=== PATIENT | female | born 1980 | race Hispanic/Latino ===

== ENCOUNTER 2017-09-24 08:41 | Inpatient (IN) | payer OTHER ==
[2017-09-24] MEDS ORDERED: Betamethasone Soluspan 30 mg/5mL Inj Susp IM ONE ×3 (09:39→11:30)
[2017-09-24] MEDS ORDERED: ceFAZolin 2 GM in Sodium Chloride 0.9% 100 ML IVPB ONE (09:41)
[2017-09-24] MEDS ORDERED: Lactated Ringer's 1,000 ML IV SCH (10:00)
--- NOTE | 2017-09-24 10:07 | OBADHP ---
Datetime: 09/24/2017 10:05 Pelvic Type - PN: Adequate Extremities - PN: Normal Abdomen - PN: Normal Back - PN: Normal Breast - PN: Normal Lungs - PN: Normal Heart - PN: Normal Thyroid - PN: Normal Neurologic - PN: Normal HEENT - PN: Normal General - PN: Normal FHR - Baseline A Provider: 150 Membranes, Provider: Intact Contraction Comments Provider: [id number] IP Chief Complaint: Uterine contractions; Scheduled Section NICHD Variability Prov Fetus A: Moderate 6-25bpm NICHD Accel Fetus A IP Provider: [id number] FHR Category Provider Fetus A: Category I NICHD Decel Fetus A IP Provider: None Dilatation, Provider: 1 Effacement, Provider: 30 Station, Provider: -3 Genitourinary Exam: Normal DTRs - PN: Normal EGA AdmitDate IP: 36.4 IP Adm Impression: , intrauterine ; Active labor IP Admit Plan: Admit to unit; Initiate labor protocol; Initiate Section protocol Datetime: 09/24/2017 09:52 Admit Comment, IP Provider: PT presents today with complaints of vaginal spotting, and contractions since 7:30am. She states that she noticed urine and mucous today in the bathroom. She has a prior hx of c/s at 36 weeks and is here today to be evaluated. POBHx: 2016 section PGYNx: normal pap, denies hx of STDs PMHx: none PSHx prior c/s Social: negative x 3 Meds: none ALL; NKDA. ROS: HEENT: denies CHAPMAN, or blurry vision. Chest: denies chest pain, or irregular heartbeat. Resp: denies shortness of breath, wheezing. Abdomen: Gravid uterus. GI/: no blood noted. Ext: no edema noted. Neuro: teresa dizziness, lightheadedness or syncope: PE: as noted above. SVE: Status: category 1. A/P 36 @ 36 6/7 1) Admit L_D IVF, NPO 2) labor: betamethasone x1, not on progesterone 3) Elevated BP x 1: 154/96 -> will do pre-eclampsia labs. 4) Hx of prior c/s: pt ate at 8am. will schedule RCS at 2pm for now. will monitor pt for labor pro phuc. If she goes into active labor, she will be sectioned sooner. 5) Plan D/W: Dr. Doshi. Comments, ACOG Physical Exam: SVE: Gestation - Est Wks by US: 36 6/ Vital Signs Provider: Reviewed
[2017-09-24 10:39] LABS: BASO % 0.3 % (0.0-2.0); EOS # 0.1 K/uL (0.0-0.7); EOS % 0.5 % (0.0-4.0); HEMOGLOBIN 12.4 g/dL (11.0-16.0); LYMPH # 1.5 K/uL (1.0-4.3); LYMPH % 10.5 % (20.0-40.0); MEAN CELL VOLUME 89.2 fL (81.0-99.0); MEAN CORPUSCULAR HEMOGLOBIN 30.6 pg (27.0-31.0); MEAN CORPUSCULAR HGB CONC 34.3 g/dL (33.0-37.0); MEAN PLATELET VOLUME 10.5 fL (7.2-11.7); MONO % 7.1 % (0.0-10.0); NEUT # 11.9 K/uL (1.8-7.0); NEUT % 81.6 % (50.0-75.0); NRBC % 0.1 % (0.0-2.0); RBC 4.06 Mil/uL (3.80-5.20); WHITE BLOOD COUNT 14.6 K/uL (4.8-10.8)
[2017-09-24 10:58] LABS: ALB/GLOB RATIO 1.1 (1.0-2.1); ALBUMIN 3.5 g/dL (3.5-5.0); ALT/SGPT 13 U/L (9-52); AST/SGOT 31 U/L (14-36); BILIRUBIN,DIRECT 0.4 mg/dL (0.0-0.4); BLOOD UREA NITROGEN 6 mg/dL (7-17); CALCIUM 9.2 mg/dl (8.6-10.4); GFR AFRICAN-AMERICAN > 60; GFR NON-AFRICAN AMERICAN > 60; URIC ACID 4.9 mg/dL (2.2-7.5)
[2017-09-24 11:01] LABS: PROTHROMBIN TIME 10.8 SECONDS (9.7-12.2)
[2017-09-24 11:27] LABS: HEPATITIS B SURFACE AG Negative (NEGATIVE)
--- NOTE | 2017-09-24 11:28 | OBPN ---
Datetime: 09/24/2017 11:23 IP Procedures Other: IP Progress Impression Other: Pt ruptured @ 11:23am, meconium IP Progress Impression: Rupture of membranes; labor IP Informed Consent Obtain: Section Delivery IP Procedures: Sterile Vag Exam IP Progress Plan: Deliver- Section Pool Provider: Negative Nitrazine Provider: Positive Membranes, Provider: Ruptured Amniotic Fluid Color, Provider: Meconium, Light FHR - Baseline A Provider: 150 Gestation - Est Wks by US: 36.0 IP Progress Note Comment: PT started to have late decels on the monitor. Pt was checked and noted to have meconium stained fluid on the pad. Nitrazine paper was performed and tested positive. The deci carmelo was made to take the pt for section. This plan was discussed with her attending Dr. Mimi brush. NICHD Accel Fetus A IP Provider: [id number] NICHD Variability Prov Fetus A: Moderate 6-25bpm Dilatation, Provider: 1 Effacement, Provider: 30 Station, Provider: -3 Dr Signature: severiano mercado Datetime: 09/24/2017 10:05 Contraction Comments Provider: [id number] FHR Category Provider Fetus A: Category I NICHD Decel Fetus A IP Provider: None Datetime: 09/24/2017 09:52 Vital Signs Provider: Reviewed
[2017-09-24] MEDS ORDERED: Sodium Citrate/Citric Acid 15 ml Sol ONE (11:29)
[2017-09-24] MEDS ORDERED: Sodium Citrate/Citric Acid 15 ml Sol PO ONE (11:30)
[2017-09-24] MEDS ORDERED: Magnesium Sulfate 20 gm 20 GM/500 ML BAG IV SCH (11:30)
[2017-09-24] MEDS ORDERED: Morphine 1 mg/ml preservative-free Inj(Duramorph) ONE (11:38)
[2017-09-24] MEDS ORDERED: ePHEDrine 50 mg/ml Inj ONE (11:38)
[2017-09-24] MEDS ORDERED: Oxytocin 20 units in LR 2,000 ML IV ONE (11:40)
[2017-09-24] MEDS ORDERED: Oxytocin 10 Units/ml Inj ONE (11:43)
[2017-09-24] MEDS ORDERED: Magnesium Sulfate 4 gm/100 ml 4 GM/100 ML BAG IVPB ONE (12:00)
[2017-09-24] MEDS ORDERED: Propofol 10 mg/ml Inj (20 ML) ONE (12:29)
[2017-09-24] MEDS ORDERED: Succinylcholine Chloride 20 mg/ml Syr (5 ml) IV ONE ×2 (12:29→12:50)
[2017-09-24] MEDS ORDERED: Rocuronium 10 mg/ml (5 ml) ONE (12:29)
[2017-09-24] MEDS ORDERED: Labetalol 25mg/5ml Syringe ONE ×2 (12:33→12:48)
[2017-09-24] MEDS ORDERED: Neostigmine Methylsulfate 3mg/3ml Syringe IV ONE (13:44)
[2017-09-24] MEDS ORDERED: HYDROmorphone 0.2 mg/ml PCA 6 MG/30 ML SOL IV ONE ×2 (14:14→16:19)
--- NOTE | 2017-09-24 14:25 | OBDS ---
MATERNAL INFORMATION Provider Comments: PT was taken to the OR and prepped and draped in the usual manner for se ction. PT was intubated d/t pt unable to tolerate epidural or spinal. Her blood pressures were elevat ed prior and during the difficult intubation. Pt was given 20mg IV labetalol. The pfannensteil incis ion was made in the lower uterine segment with a scalpel through the skin, the preperitoneal fat and the fascia. The fascia and muscle was with surgeons hands. The scalpel was used to create a nd incision in the lower uterine transverse segment. The head was identified, elevated onto the abdomen and delivered with the assistance of fundal pressure. The cord was cut, clamped and fetus wa s handed to peds for further care. The placenta was removed, the uterus was exteriorized. The lap spo nge was used to clean the uterus all of debris. The incision was then reapproximated with 0 vicryl in 2 layers. The posterior uterus was irrigated with warm saline. Floseal was placed on the uterine inc ision and placed back into the abdomen. Surgical was then placed on top of the floseal. The periton eum was reapproximated with 2.0 vicryl. The muscles were reapproximated with 2.0 vicryl. The fascia w as reapproximated with 0 vicryl. The muscles were reapproximated with 0 vicryl. The preperitoneal fat was reapproximated with plain gut. The skin was reapproximated with ramón. All sponge needle and instrument count was noted to be correct. LABOR SUMMARY EDC: 10/18/2017 00:00 No. Babies in Womb: 1 Attempted: No Labor Anesthesia: None LABOR INFORMATION Reason for Induction: Not Applicable Oxytocin: N/A Group B Beta Strep: Not Done Antibiotics # of Doses: 1 Antibiotics Time of Last Dose: 1145 Steroids Given: None Reason Steroids Not Administered: Not Applicable MEMBRANES Membranes Rupture Method: Spontaneous Rupture of Membranes: 09/24/2017 11:14 Length of Rupture (hrs): 1.65 Amniotic Fluid Color: Light Meconium Amniotic Fluid Amount: Small Amniotic Fluid Odor: None STAGES OF LABOR Stage 3 hrs: 0 Stage 3 min: 1 VAGINAL DELIVERY Episiotomy: None Laceration Extension: N/A Laceration Type: None CSECTION DELIVERY Primary Indication: Repeat Elective Secondary Indication: in labor CSection Urgency: Emergency CSection Incidence: Repeat Labor: Labor Elective: Elective CSection Incision: Lower Uterine Transverse BABY A INFORMATION Delivery Date/Time: 09/24/2017 12:53 Method of Delivery: Born in Route : No : N/A Forceps: N/A Vacuum Extraction: N/A Shoulder Dystocia : No SHOULDER DYSTOCIA BABY A Infant Delivery Date/Time: 09/24/2017 12:53 PRESENTATION/POSITION BABY A Presentation: Cephalic Cephalic Presentation: Vertex Vertex Position: Left Occipital Anterior Breech Presentation: N/A PLACENTA INFORMATION BABY A Placenta Delivery Time : 09/24/2017 12:54 Placenta Method of Delivery: Manual Removal Placenta Status: Delivered SCORES BABY A Heart Rate 1 min: >100 bpm Resp Effort 1 min: Good Cry Reflex Irritability 1 min: Cough or Sneeze or Pulls Away Muscle Tone 1 min: Some Flexion of Extremities Color 1 min: Body Big Arm, Extremities Blue Resuscitation Effort 1 min: Tactile Stimulation SCORE 1 MIN: 8 Heart Rate 5 min: >100 bpm Resp Effort 5 min: Good Cry Reflex Irritability 5 min: Cough or Sneeze or Pulls Away Muscle Tone 5 min: Active Motion Color 5 min: Body Big Arm, Extremities Blue Resuscitation Effort 5 min: N/A SCORE 5 MIN: 9 INFANT INFORMATION BABY A Gestational Age at Delivery: 36.4 Gestational Status: Infant Outcome : Liveborn Condition : Stable Sex: Female WEIGHT/LENGTH BABY A Infant Birthweight (gms): 3950 Weight (lb): 8 Weight (oz): 11 Infant Length Inches: 19.75 Infant Length cms: 50.2 CORD INFORMATION BABY A No. Cord Vessels: 3 Nuchal Cord : N/A Cord Blood Taken: Yes Suction: Mouth; Nose ASSESSMENT BABY A Infant Complications: None Physical Findings at Delivery: Within Normal Limits Infant Respirations: Appears Normal Ase Master Mechanic/ALS Called : No Infant Care By: Andrew Diamond RN Transferred To: [facility] RESUSCITATION BABY A Resuscitation Effort: PPV/NCPAP (Annotations: Dr Kennedy adminitered PPV for 10-15 seconds)
[2017-09-24] MEDS: Prenatal Multivit/Folic Acid/Iron Tab PO SCH (14:30)
--- NOTE | 2017-09-24 14:34 | OBDS ---
Provider Comments: PT hickman elevated BP in the severe range. She was given mag sulfate 4gm bolus prior to the section. She was given 20g IV labetalol in the OR prior to intubation. PT was taken t o the OR and prepped and draped in the usual manner for section. PT was intubated d/t pt indy ble to tolerate epidural or spinal. Her blood pressures were elevated prior and during the difficult intubation. Pt was given 20mg IV labetalol. The pfannensteil incision was made in the lower uterine segment with a scalpel through the skin, the preperitoneal fat and the fascia. The fascia and muscle was with surgeons hands. The scalpel was used to create and incision in the lower uterine t ransverse segment. The head was identified, elevated onto the abdomen and delivered with the as sistance of fundal pressure. The cord was cut, clamped and fetus was handed to peds for further care. The placenta was removed, the uterus was exteriorized. The lap sponge was used to clean the uterus a ll of debris. The incision was then reapproximated with 0 vicryl in 2 layers. The posterior uterus wa s irrigated with warm saline. Floseal was placed on the uterine incision and placed back into the abd omen. Surgical was then placed on top of the floseal. The peritoneum was reapproximated with 2.0 vi cryl. The muscles were reapproximated with 2.0 vicryl. The fascia was reapproximated with 0 vicryl. T he muscles were reapproximated with 0 vicryl. The preperitoneal fat was reapproximated with plain gut . The skin was reapproximated with ramón. All sponge needle and instrument count was noted to be correct.
[2017-09-24] MEDS ORDERED: Magnesium Sulfate 20 gm 20,000 MG/500 ML BAG IV ONE (14:50)
[2017-09-24] MEDS: Simethicone 80 mg Chewtab PO SCH ×2 (14:50→18:12)
[2017-09-24 15:54] LABS: SQUAMOUS EPITHIAL 47 /hpf (0-5); URINE BACTERIA FEW (<OCC); URINE BILIRUBIN NEGATIVE (NEGATIVE); URINE BLOOD 3+ (NEGATIVE); URINE CLARITY Hazy (Clear); URINE COLOR Yellow (YELLOW); URINE GLUCOSE (UA) NORMAL (Normal); URINE LEUKOCYTE ESTERASE NEG Leu/uL (Negative); URINE PROTEIN 1+ mg/dL (NEGATIVE); URINE UROBILINOGEN NORMAL mg/dL (0.2-1.0)
[2017-09-24 16:18] LABS: BARBITURATES, UR NEGATIVE (NEGATIVE); BENZODIAZEPINES, UR NEGATIVE (NEGATIVE); OPIATES, UR NEGATIVE (NEGATIVE); PHENCYCLIDINE, UR NEGATIVE (NEGATIVE)
--- NOTE | 2017-09-24 16:26 | OBPPN ---
Datetime: 09/24/2017 16:19 PP Pain Prov: Within normal limits PP Nausea Prov: Denies PP Flatus Prov: Yes PP Breasts Prov: Normal PP Heart Prov: Normal PP Lungs Prov: Normal PP Abdomen/Uterus Prov: Normal PP Lochia Prov: Normal PP Vulva/Perineum Prov: Normal PP CVA Tenderness Prov: Normal PP Extremities Prov: Normal PP Comments Phys Exam Prov: PTs blood pressures @ 15:17 was 156/101, @ 15:02 162/89. Will start labe talol 100mg PO BID PP Impression Prov: Induced Hypertension PP Plan Prov: Continue present management PP Progress Note Prov: ON mag sulfate and labetalol 100mg PO BID Vital Signs Provider PP: Reviewed
[2017-09-24] MEDS ORDERED: Magnesium Sulfate 1 gm in D5W 1 GM/100 ML BAG IVPB ONE (17:18)
--- NOTE | 2017-09-24 17:22 | OBPPN ---
Datetime: 09/24/2017 17:20 PP Pain Prov: Within normal limits PP Nausea Prov: Denies PP Flatus Prov: Yes PP Breasts Prov: Normal PP Heart Prov: Normal PP Lungs Prov: Normal PP Abdomen/Uterus Prov: Normal PP Lochia Prov: Normal PP Vulva/Perineum Prov: Normal PP CVA Tenderness Prov: Normal PP Extremities Prov: Normal PP Progress Note Prov: Mag decreased to 1gm. Pt on non rebreather
--- NOTE | 2017-09-24 21:57 | OBDS ---
DELIVERY PERSONNEL Delivery Doctor: Dr GARNICA Scrub Nurse: Heather Wilson Electrical Service Technician: Lauren Vidal RN Anesthesiologist: Dr Barros MATERNAL INFORMATION Delivery Anesthesia: General Medications in Delivery: labetalol 30 mg, 40 units of pitocin in 1000 ml LR Estimated Blood Loss (ml): 500 Placenta Cultured: Yes Maternal Complications: None RN Comments: liveborn female ; mother given 30 mg labetalol in delivery-10mg@ 1240, 10mg@1244 and 10mg@1330; mother and infant in stable condition Provider Comments: PT hickman elevated BP in the severe range. She was given mag sulfate 4gm bolus prior to the section. She was given 20g IV labetalol in the OR prior to intubation. PT was taken t o the OR and prepped and draped in the usual manner for section. PT was intubated d/t pt indy ble to tolerate epidural or spinal. Her blood pressures were elevated prior and during the difficult intubation. Pt was given 20mg IV labetalol. The pfannensteil incision was made in the lower uterine segment with a scalpel through the skin, the preperitoneal fat and the fascia. The fascia and muscle was with surgeons hands. The scalpel was used to create and incision in the lower uterine t ransverse segment. The head was identified, elevated onto the abdomen and delivered with the as sistance of fundal pressure. The cord was cut, clamped and fetus was handed to peds for further care. The placenta was removed, the uterus was exteriorized. The lap sponge was used to clean the uterus a ll of debris. The incision was then reapproximated with 0 vicryl in 2 layers. The posterior uterus wa s irrigated with warm saline. Floseal was placed on the uterine incision and placed back into the abd omen. Surgical was then placed on top of the floseal. The peritoneum was reapproximated with 2.0 vi cryl. The muscles were reapproximated with 2.0 vicryl. The fascia was reapproximated with 0 vicryl. T he muscles were reapproximated with 0 vicryl. The preperitoneal fat was reapproximated with plain gut . The skin was reapproximated with ramón. All sponge needle and instrument count was noted to be correct. LABOR SUMMARY EDC: 10/18/2017 00:00 No. Babies in Womb: 1 Attempted: No Labor Anesthesia: None LABOR INFORMATION Reason for Induction: Not Applicable Oxytocin: N/A Group B Beta Strep: Not Done Antibiotics # of Doses: 1 Antibiotics Time of Last Dose: 1145 Steroids Given: None Reason Steroids Not Administered: Not Applicable MEMBRANES Membranes Rupture Method: Spontaneous Rupture of Membranes: 09/24/2017 11:14 Length of Rupture (hrs): 1.65 Amniotic Fluid Color: Light Meconium Amniotic Fluid Amount: Small Amniotic Fluid Odor: None STAGES OF LABOR Stage 3 hrs: 0 Stage 3 min: 1 VAGINAL DELIVERY Episiotomy: None Laceration Extension: N/A Laceration Type: None CSECTION DELIVERY Primary Indication: Repeat Elective Secondary Indication: in labor CSection Urgency: Emergency CSection Incidence: Repeat Labor: Labor Elective: Elective CSection Incision: Lower Uterine Transverse BABY A INFORMATION Delivery Date/Time: 09/24/2017 12:53 Method of Delivery: Born in Route : No : N/A Forceps: N/A Vacuum Extraction: N/A Shoulder Dystocia : No SHOULDER DYSTOCIA BABY A Infant Delivery Date/Time: 09/24/2017 12:53 PRESENTATION/POSITION BABY A Presentation: Cephalic Cephalic Presentation: Vertex Vertex Position: Left Occipital Anterior Breech Presentation: N/A PLACENTA INFORMATION BABY A Placenta Delivery Time : 09/24/2017 12:54 Placenta Method of Delivery: Manual Removal Placenta Status: Delivered SCORES BABY A Heart Rate 1 min: >100 bpm Resp Effort 1 min: Good Cry Reflex Irritability 1 min: Cough or Sneeze or Pulls Away Muscle Tone 1 min: Some Flexion of Extremities Color 1 min: Body Hoot Owl, Extremities Blue Resuscitation Effort 1 min: Tactile Stimulation SCORE 1 MIN: 8 Heart Rate 5 min: >100 bpm Resp Effort 5 min: Good Cry Reflex Irritability 5 min: Cough or Sneeze or Pulls Away Muscle Tone 5 min: Active Motion Color 5 min: Body Hoot Owl, Extremities Blue Resuscitation Effort 5 min: N/A SCORE 5 MIN: 9 INFANT INFORMATION BABY A Gestational Age at Delivery: 36.4 Gestational Status: Outcome : Liveborn Infant Condition : Stable Infant Sex: Female WEIGHT/LENGTH BABY A Birthweight (gms): 3950 Weight (lb): 8 Infant Weight (oz): 11 Length Inches: 19.75 Length cms: 50.2 CORD INFORMATION BABY A No. Cord Vessels: 3 Nuchal Cord : N/A Infant Cord pH Baby Venous: 7.16 Cord Blood Taken: Yes Infant Suction: Mouth; Nose ASSESSMENT BABY A Infant Complications: None Physical Findings at Delivery: Within Normal Limits Respirations: Appears Normal Top Lift Compressor/ALS Called : No Care By: Andrew Diamond RN Transferred To: [facility] RESUSCITATION BABY A Resuscitation Effort: PPV/NCPAP (Annotations: Dr Kennedy adminitered PPV for 10-15 seconds)
--- NOTE | 2017-09-24 21:58 | OBPPN ---
Datetime: 09/24/2017 21:54 PP Pain Prov: Within normal limits PP Nausea Prov: Denies PP Flatus Prov: Yes PP Breasts Prov: Normal PP Heart Prov: Normal PP Lungs Prov: Normal PP Abdomen/Uterus Prov: Normal PP Lochia Prov: Normal PP Vulva/Perineum Prov: Normal PP CVA Tenderness Prov: Normal PP Extremities Prov: Normal PP Impression Prov: Normal progression; Induced Hypertension PP Plan Prov: Continue present management PP Progress Note Prov: Pt advmisteed this morning for VB and preelcmpias with severe fetaures, preuc ise cxs contracitn in labor s/p erpeat cxs pt evluated, rpeorts headhecs, no scotamos, pain improved iwht medician, no nuase, nvomitng, feve, r hcills reprotrs feelign hudrngry VS as above GEN: NAD AA ox 3 BREAST NT, non gentogj RESP CTAB?l CVS: RR< +S1/S2 ABD: soft, nt, nd, noguaring, no tbourend cincion c/d/i no uteirne /fundal tenrners, negative urphy sign no ruq/epgist pain ve lisha lochai, no culs semlig ext negaitve calf tenere, dtr 2+b/l back no cva d/bl a/p s/p rltcs with sever epreelcmpsai -mag as per protocl., lefe q 6 hour, therpuat 4-8 -vs as perprtock -inc/outs -tyonole prn headhace -pain mangetn -ice chips -dvt prolhaixs. -prelcmpa labs IP PP Procedures Comments: Magnesium Vital Signs Provider PP: Reviewed Vital Signs Provider Details PP: BP 130-140/70s
[2017-09-25] MEDS ORDERED: Oxycodone/Acetaminophen 5/325 mg Tab ONE ×2 (00:48→04:59)
[2017-09-25] MEDS: Oxycodone/Acetaminophen 5/325 mg Tab PO PRN ×3 (00:49→15:15)
[2017-09-25] MEDS: Prenatal Multivit/Folic Acid/Iron Tab PO SCH (09:58)
[2017-09-25] MEDS: Simethicone 80 mg Chewtab PO SCH ×3 (09:58→21:46)
[2017-09-25] MEDS: Enoxaparin 40 mg Syringe SC SCH (09:59)
[2017-09-25 10:03] LABS: BASO % 0.1 % (0.0-2.0); LYMPH # 2.2 K/uL (1.0-4.3); LYMPH % 8.1 % (20.0-40.0); MEAN CELL VOLUME 90.7 fL (81.0-99.0); MEAN CORPUSCULAR HEMOGLOBIN 30.4 pg (27.0-31.0); MEAN CORPUSCULAR HGB CONC 33.5 g/dL (33.0-37.0); MEAN PLATELET VOLUME 9.7 fL (7.2-11.7); MONO # 2.6 K/uL (0.0-0.8); MONO % 9.5 % (0.0-10.0); NEUT # 22.5 K/uL (1.8-7.0); NEUT % 82.3 % (50.0-75.0); NRBC % 0.1 % (0.0-2.0); PLATELET COUNT 236 K/uL (130-400); RBC 3.32 Mil/uL (3.80-5.20); RED CELL DISTRIBUTION WIDTH 14.1 % (11.5-14.5)
[2017-09-25 10:04] LABS: SQUAMOUS EPITHIAL < 1 /hpf (0-5); URINE BACTERIA RARE (<OCC); URINE BILIRUBIN NEGATIVE (NEGATIVE); URINE BLOOD 2+ (NEGATIVE); URINE CLARITY Hazy (Clear); URINE COLOR Yellow (YELLOW); URINE GLUCOSE (UA) NORMAL (Normal); URINE LEUKOCYTE ESTERASE TRACE Leu/uL (Negative); URINE PROTEIN NEGATIVE (NEGATIVE); URINE UROBILINOGEN NORMAL mg/dL (0.2-1.0)
[2017-09-25 10:12] LABS: HEMOGLOBIN 10.1 g/dL (11.0-16.0); WHITE BLOOD COUNT 27.3 K/uL (4.8-10.8)
[2017-09-25 10:13] LABS: PROTHROMBIN TIME 10.7 SECONDS (9.7-12.2)
[2017-09-25 10:23] LABS: ALBUMIN 2.9 g/dL (3.5-5.0); ALT/SGPT 24 U/L (9-52); AST/SGOT 41 U/L (14-36); BLOOD UREA NITROGEN 7 mg/dL (7-17); CALCIUM 7.5 mg/dl (8.6-10.4); GFR AFRICAN-AMERICAN > 60; GFR NON-AFRICAN AMERICAN > 60; URIC ACID 5.8 mg/dL (2.2-7.5)
[2017-09-25 10:40] LABS: LYMPHOCYTE 10 % (20-40); MONOCYTE 10 % (0-10); NEUTROPHIL 80 % (50-75); PLATELET ESTIMATE NORMAL (NORMAL); TOTAL CELLS COUNTED 100
[2017-09-26 07:32] LABS: ALB/GLOB RATIO 1.2 (1.0-2.1); ALBUMIN 3.6 g/dL (3.5-5.0); ALT/SGPT 12 U/L (9-52); AST/SGOT 31 U/L (14-36); BLOOD UREA NITROGEN 9 mg/dL (7-17); CALCIUM 8.2 mg/dl (8.6-10.4); GFR AFRICAN-AMERICAN > 60; GFR NON-AFRICAN AMERICAN > 60
[2017-09-26] MEDS: Oxycodone/Acetaminophen 5/325 mg Tab PO PRN ×2 (08:10→16:55)
[2017-09-26 08:42] LABS: BASO % 0.2 % (0.0-2.0); HEMOGLOBIN 8.7 g/dL (11.0-16.0); LYMPH # 1.4 K/uL (1.0-4.3); LYMPH % 6.9 % (20.0-40.0); MEAN CELL VOLUME 90.2 fL (81.0-99.0); MEAN CORPUSCULAR HEMOGLOBIN 30.6 pg (27.0-31.0); MEAN CORPUSCULAR HGB CONC 33.9 g/dL (33.0-37.0); MEAN PLATELET VOLUME 9.6 fL (7.2-11.7); MONO # 1.3 K/uL (0.0-0.8); NEUT # 18.2 K/uL (1.8-7.0); NEUT % 86.9 % (50.0-75.0); PLATELET COUNT 219 K/uL (130-400); RBC 2.85 Mil/uL (3.80-5.20); RED CELL DISTRIBUTION WIDTH 13.9 % (11.5-14.5); WHITE BLOOD COUNT 20.9 K/uL (4.8-10.8)
[2017-09-26] MEDS ORDERED: Oxycodone/Acetaminophen 5/325 mg Tab PO PRN (08:46)
[2017-09-26 09:34] LABS: ANISOCYTOSIS SLIGHT; LYMPHOCYTE 7 % (20-40); MONOCYTE 4 % (0-10); NEUTROPHIL 89 % (50-75); PLATELET ESTIMATE NORMAL (NORMAL); POIKILOCYTOSIS SLIGHT; TOTAL CELLS COUNTED 100
[2017-09-26 09:35] LABS: HYPOCHROMIC SLIGHT; TARGET CELLS SLIGHT
[2017-09-26] MEDS: Enoxaparin 40 mg Syringe SC SCH (09:48)
[2017-09-26] MEDS: Prenatal Multivit/Folic Acid/Iron Tab PO SCH (09:52)
[2017-09-26] MEDS: Simethicone 80 mg Chewtab PO SCH ×4 (09:52→22:04)
--- NOTE | 2017-09-26 14:01 | OBPPN ---
Datetime: 09/26/2017 13:24 PP Pain Prov: Within normal limits PP Nausea Prov: Denies PP Flatus Prov: Yes PP BM Prov: No PP Heart Prov: Normal PP Lungs Prov: Normal PP Abdomen/Uterus Prov: Normal PP Lochia Prov: Normal PP Vulva/Perineum Prov: Normal PP CVA Tenderness Prov: Not Done PP Extremities Prov: Normal PP C/S Incision Prov: Normal PP Progress Prov: Not Applicable PP Impression Prov: Normal progression PP Plan Prov: Continue present management Vital Signs Provider PP: Reviewed Datetime: 09/25/2017 10:00 PP Progress Note Prov: 37 year old female who presents at 36 6/7 who is POD#1 after a repeat . Patient reports some an improvement in her headaches in comparison to yesterday. She re ports not ambulating at this time due to shaver insertion. Patient reports her pain is controlled with current medication regimen. Patient denies any chest pain, shortness of breath, changes in vision, f isabel, chills, nausea, vomiting, syncopal episodes, or any other complaints. Vitals: See vitals in chart above. Reviewed. Physical Exam: GEN: Normocephalic, atraumatic, in no acute distress Neurology: CN2-12 intact HEENT: EOMI, SIRENA Pulmonary: Clear to auscultation bilaterally, no rhonchi appreciated Cardio: S1,S2 appreciated. No murmurs, or thrills appreciated Abdomen: Distended. Hypoactive bowel sounds. Extremities: Normal appearance, no lower extremity edema appreciated Labs: 14.6>12.4/36.2<221 A/P 37 year old female , POD#1 for repeat . -Continue pain management. Controlled. -Encouraged ambulation. -Advance diet as tolerated. -Elevated WBC. Further management pending Attending. Discussed with Attending Dr. Doshi. Await further rec's. Orville Mei, Direct Marketing Manager PGY-1 delayed entry agree with garima pt seen adn examiend bp labarotl 100m,g-->200mg bid routin post op care gent/clind enodemtrritis / luekocytys
--- NOTE | 2017-09-26 16:06 | RAD ---
HISTORY: abdominal distention COMPARISON: No prior. FINDINGS: BOWEL: There is prominent gas throughout the bowel is especially that in the right mid abdomen it is also some moderate concomitant stool. Based on the position- cecal distention is compatible with this. Is also however probable moderate distension of the transverse colon as well with some apparent borderline distention of some small bowel loops and left abdomen. Confirming valvulae and/or haustral markings in all bowel loop segments is problematic No free air seen BONES: Normal. OTHER FINDINGS: Inferior surgical ramón are present IMPRESSION: Generalized colonic and small bowel - is distension more prominent in the apparent cecum. Given the surgical ramón -possibly recent surgery and an ileus here is a consideration. No additional clinical history correlation is advanced. Concomitant small large bowel obstruction -likely incomplete cannot be entirely excluded. Clinical correlation with physical exam and recent past medical/surgical history is essential. Continued close follow-up recommended.
[2017-09-26] MEDS: POLYETHYLENE GLYCOL 3350 17 GM/Dose PACKET PO SCH (17:39)
[2017-09-27 07:57] LABS: BASO % 0.3 % (0.0-2.0); EOS # 0.1 K/uL (0.0-0.7); EOS % 0.5 % (0.0-4.0); HEMOGLOBIN 7.7 g/dL (11.0-16.0); LYMPH # 2.4 K/uL (1.0-4.3); LYMPH % 14.8 % (20.0-40.0); MEAN CORPUSCULAR HEMOGLOBIN 31.2 pg (27.0-31.0); MEAN CORPUSCULAR HGB CONC 34.3 g/dL (33.0-37.0); MEAN PLATELET VOLUME 9.5 fL (7.2-11.7); MONO # 1.5 K/uL (0.0-0.8); MONO % 9.2 % (0.0-10.0); NEUT # 12.2 K/uL (1.8-7.0); NEUT % 75.2 % (50.0-75.0); NRBC % 0.1 % (0.0-2.0); RBC 2.46 Mil/uL (3.80-5.20); RED CELL DISTRIBUTION WIDTH 14.2 % (11.5-14.5); WHITE BLOOD COUNT 16.3 K/uL (4.8-10.8)
--- NOTE | 2017-09-27 09:11 | OBPPN ---
Datetime: 09/27/2017 08:20 PP Pain Prov: Within normal limits PP Nausea Prov: Denies PP Flatus Prov: Yes PP BM Prov: No PP Heart Prov: Normal PP Lungs Prov: Normal PP Lochia Prov: Normal PP Extremities Prov: Normal PP C/S Incision Prov: Normal PP Impression Prov: Normal progression PP Plan Prov: Continue present management PP Progress Note Prov: Patient was seen and examinedat bedside. Per nursing no acute events occurred overnight. The patient reports to ambulating once since yesterday. The patient denies at this time. The patient is tolerating her diet at this time. The patient does report some abdomin al discomfort. She denies any chest pain, shortness of breath, fevers, chills, nausea, vomiting, syn copal episodes or any ohter complaints. Vitals: See vitals chart above, reviewed Physical Exam: GEN: Normocephalic, atrumatic, resting comfortably HEENT: EOMI, SIRENA Pulmonary: Clear to ausculation bilaterally, No rhonchi or wheezing present Cardiology: S1,S2 , no murmurs present Abdomen: NT, ND no discomfort to palpation. Normoactive bowel sounds Lower extremities: Trace pitting edema present Labs: CBC: 16.3>7.7/22.4<226 A/P 37 year old , POD#3 s/p repeat -Continue pain management -Encouraged ambulation. -Encouraged breast feeding. -Will continue to advance diet as tolerated -WBC trending down. -Continue Labetolol. -Supppository -Social Work Consult. Discussed with Attending Dr. Doshi. Will await for more rec's. Orville Mei, Sales Inspector PGY-1 pt seen and examiend and reprots pian is controlled, passing flatu, no bm. pt preorts some gas dis comfort pt tolerating diet, no bm, no fever, chills, enause, vomiitng. denies headaches, blood prssure, ru q/epigiast stne VS: 130-150/70-90s PE as baove A/p s/p RLTCS POD #3 with elevated bp on labetabol -possible incrased 300mg tid -s/p AXR- low concner for obstruction, passing flatus, tolerating diet -repeat cbc wbc decraseing to 16 ad hb 7.7 -will reevaltue
--- NOTE | 2017-09-27 09:11 | OBDCSUM ---
Datetime: 09/27/2017 09:09 Discharged to, Provider: Home Follow up at, Provider: Dr Doshi Disch Instr Activity: Normal activity Disch Instr Diet: Regular Discharge Instructions, Provider: Routine instructions given Discharge Diagnosis, Provider: Labor Discharge Time: 09/27/2017 09:09 Follow up in weeks, Provider: 1 week Disch Referrals: None Contraception discussed, Prov: Yes Disch Activity Restrictions: No sexual activity; Nothing in vagina - Manuelito, tampons, douche Discharge Comment, Provider: precautions give Discharge Diagnosis Prov Other: preeclampsia Contraception after Delivery: Not Planning to Use
[2017-09-27] MEDS ORDERED: Labetalol Hydrochloride 300 mg Tab PO SCH ×2 (10:00→16:00)
[2017-09-27] MEDS: POLYETHYLENE GLYCOL 3350 17 GM/Dose PACKET PO SCH (10:01)
[2017-09-27] MEDS: Enoxaparin 40 mg Syringe SC SCH (10:05)
[2017-09-27] MEDS: Prenatal Multivit/Folic Acid/Iron Tab PO SCH (10:06)
[2017-09-27] MEDS: Simethicone 80 mg Chewtab PO SCH ×2 (10:06→15:00)
[2017-09-27 11:30] LABS: BASO % 0.2 % (0.0-2.0); EOS # 0.1 K/uL (0.0-0.7); EOS % 0.6 % (0.0-4.0); HEMOGLOBIN 7.8 g/dL (11.0-16.0); LYMPH # 1.9 K/uL (1.0-4.3); LYMPH % 11.7 % (20.0-40.0); MEAN CELL VOLUME 90.5 fL (81.0-99.0); MEAN CORPUSCULAR HEMOGLOBIN 30.7 pg (27.0-31.0); MEAN CORPUSCULAR HGB CONC 33.9 g/dL (33.0-37.0); MEAN PLATELET VOLUME 9.2 fL (7.2-11.7); MONO # 1.3 K/uL (0.0-0.8); MONO % 7.7 % (0.0-10.0); NEUT # 13.2 K/uL (1.8-7.0); NEUT % 79.8 % (50.0-75.0); RBC 2.55 Mil/uL (3.80-5.20); RED CELL DISTRIBUTION WIDTH 13.9 % (11.5-14.5); WHITE BLOOD COUNT 16.5 K/uL (4.8-10.8)
--- NOTE | 2017-09-27 13:23 | OBPPN ---
Datetime: 09/27/2017 13:19 PP Pain Prov: Within normal limits PP Nausea Prov: Denies PP Flatus Prov: Yes PP BM Prov: Yes PP Breasts Prov: Normal PP Heart Prov: Normal PP Lungs Prov: Normal PP Abdomen/Uterus Prov: Normal PP Lochia Prov: Normal PP Vulva/Perineum Prov: Normal PP CVA Tenderness Prov: Normal PP Extremities Prov: Normal PP C/S Incision Prov: Normal PP Progress Prov: Normal PP Progress Note Prov: pt seen and examiend dneis anhy heaxche, blurry vison, ruq/epgia apin pt rpeorts abodmin pain controooled, ambuaitnf, voidng, pasisgn flatu, +BM pt is bottel feedign dnes an y efelign of sadness or derpssion VS See aobve PE se eaobve a/p s/p RPLTCS POD #3 with superimoosed preeclmpisa iwth htn dch om laboeol 300mg tid rto 1 week rpeciaotn bp, preclampp given Vital Signs Provider PP: Reviewed
--- NOTE | 2017-09-27 15:14 | PCM.PSYCH ---
Initial Psychiatric Evaluation - Initial Psychiatric Evaluation Type of Admission: Voluntary Legal Status: Capacity Chief Complaint (in patient's own words): "Tired" History of Present Illness and Precipitating Events: This is a 37 yo WF, with one son, 3 y/o and now delivered a girl. She is employed and lives with her and son. Her parents live downstairs. Consult is requested for her indifference to her . Formal Waiter/Waitress spoke to the pt , her w her consent and her nurse, reviewed chart. She says she is happy to have her baby, it was planned, and she denies any depressive sxs and SI, HI, infanticidal ideation. She is anxious and tired b/c she had a "rough" and an emergency . She still has lots of "gas" and fluid and looks as if she didn't give at all. 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 She is however future oriented and pleasant, making jokes, and unlike yesterday she did tend to her baby when she cried. Formal Waiter/Waitress gave info on how to increase attachment and bonding and some basic proper parenting strategies with regards to the baby's emotional well-being, to both. They responded well and will follow with indiv therapy if needed. is very reliable and will help as well as her parents. She is off for 4 months. No past psych hx No medical hx No family psych hx No drugs/alcohol Current Medications: Active Medications Generic Name Dose Route Start Last Admin Trade Name Nitishq PRN Reason Stop Dose Admin Acetaminophen 650 mg 09/24/17 21:59 Tylenol 325mg Tab PO Q6 PRN Headache Docusate Sodium 100 mg 09/24/17 18:00 09/27/17 10:06 Colace PO 100 mg BID ORNNY Administration Enoxaparin Sodium 40 mg 09/25/17 10:00 09/27/17 10:05 Lovenox SC 40 mg DAILY RONNY Administration Ferrous Sulfate 325 mg 09/24/17 14:00 09/27/17 10:06 Feosol PO 325 mg DAILY RONNY Administration Gentamicin Sulfate 80 mg/ 102 mls @ 100 mls/hr 09/25/17 11:15 09/27/17 11:14 Sodium Chloride IVPB 100 mls/hr Q8H RONNY Administration Protocol Clindamycin Phosphate 900 mg/ 56 mls @ 100 mls/hr 09/25/17 11:15 09/27/17 11: 13 Dextrose IVPB 100 mls/hr Q8H RONNY Administration Protocol Ibuprofen 600 mg 09/24/17 13:52 09/27/17 10:11 Motrin Tab PO 600 mg Q6H PRN Administration Pain, Mild (1-3) Labetalol HCl 300 mg 09/27/17 16:00 Normodyne PO Q8H RONNY Oxycodone/Acetaminophen 1 tab 09/26/17 08:46 09/26/17 21:04 Percocet 5/325 Mg Tab PO 09/29/17 08:47 1 tab Q4H PRN Administration Pain, moderate (4-7) Polyethylene Glycol 17 gm 09/26/17 10:00 09/27/17 10:01 Miralax PO 17 gm DAILY RONNY Administration Multivit/Folic Acid/Iron 1 tab 09/24/17 14:00 09/27/17 10:06 PO 1 tab DAILY RONNY Administration Simethicone 80 mg 09/24/17 14:00 09/27/17 15:00 Mylicon Chew Tab PO 80 mg QID RONNY Administration Past Psychiatric History - Past Psychiatric History Previous Treatment History: None Pertinent Medical Hx (Current Medical&Sleep Prob, Allergies): Allergies Allergy/AdvReac Type Severity Reaction Status Date / Time No Known Allergies Allergy Verified 09/24/17 09:33 Docusate Sodium [Colace] 100 mg PO BID #60 capsule 09/27/17 Ferrous Sulfate 325 mg PO BID #60 tablet 09/27/17 Labetalol [Trandate] 300 mg PO TID #90 tab 09/27/17 Review of Systems - Neurological Neurological: UNREMARKABLE - Psychiatric Psychiatric: Abnormal Sleep Pattern, Anxiety. absent: Depression, Hallucinations, Homicidal Ideation, Paranoia, Suicidal Ideation Mental Status Examination - Personal Presentation Personal Presentation: Looks stated age - Affect Affect: Broad - Motor Activity Motor Activity: Calm - Reliability in Providing Information Reliability in Providing Information: Good - Speech Speech: Organized - Mood Mood: Anxious - Formal Thought Process Formal Thought Process: No Impairment - Cognitive Functions Orientation: Person, Place, Situation, Time Sensorium: Alert Attention/Concentration: Attentive Estimate of Intelligence: Average Judgement: Intact, as evidence by: Good judgement Memory: Recent intact, as evidence by: Ability to recall events of the day, Remote intact, as evidenced by: Ability to recall historical events - Strength & Assets Inventory Strength & Assets Inventory: Family support, Employment history DSM 5 DX - DSM 5 DSM 5 Diagnosis: Adjustment d/o - unspecified - Recommended/Plan of Treatment Treatment Recommendations and Plan of Treatment: Support and psychoed Follow up with outpt psych if needed Cleared for d/c 33 min
[2017-09-27 18:54] VITALS: PULSE 90; TEMP 97.9
[2017-09-27 23:16] VITALS: BP 153/94; RESP 18; O2SAT 99
== END 2017-09-27 16:40 | disposition home or self-care (01) | DRG 766 ==
LOC: C.EROB 08:41 → C.4D 09:47 → C.4M 09-25 16:53
PROVIDERS: ADMIT Obstetrics & Gynecology; ATTEND Obstetrics & Gynecology
PROC: 10D00Z1 Extraction of Products of Conception, Low, Open Approach (ICD-10-PCS; principal; 2017-09-24)
DX: O60.14X0 Preterm labor third trimester with preterm delivery third trimester, not applicable or unspecified (principal); O34.211 Maternal care for low transverse scar from previous cesarean delivery; O13.4 Gestational [pregnancy-induced] hypertension without significant proteinuria, complicating childbirth; O76 Abnormality in fetal heart rate and rhythm complicating labor and delivery; O77.0 Labor and delivery complicated by meconium in amniotic fluid; D72.829 Elevated white blood cell count, unspecified; Z3A.36 36 weeks gestation of pregnancy; Z37.0 Single live birth